=== PATIENT | female | born 1965 | race Caucasian/White ===

== ENCOUNTER → 2016-09-26 | Outpatient (CLI) | payer BC ==
--- NOTE | 2016-10-03 17:46 | KCIC ---
Bilateral digital screening mammograms: Reason for examination: Routine screening. No previous examinations available for comparison. The skin and nipples show no abnormalities. No abnormal axillary lymph nodes are seen. The breast parenchyma is extremely dense. (Breast density: Category D.) There is a small nodular density anterior laterally in the left breast on cc view probably at the 2:00 position measuring 6 mm in size. Recommend further evaluation with ultrasound. There are no other dominant masses, suspicious calcifications or architectural distortion. Impression: Small 6 mm nodule in the left breast laterally probably at the 2:00 B position. Recommend further evaluation with ultrasound. Your patient's mammogram demonstrates that she has dense breast tissue (breast density category C or D), which could hide abnormalities, and if she has other risk factors for breast cancer that have been identified, she might benefit from supplemental screening tests that may be suggested by you as her ordering physician. Dense breast tissue, in and of itself, is a relatively common condition. Therefore, this information is not provided to cause undue concern, but rather to raise your awareness and to promote discussion with your patient regarding the presence of other risk factors, in addition to dense breast tissue. Your patient's mammography results will be sent to her. BI-RAD Category 0: Incomplete. Ultrasound follow-up is recommended. "Our facility is accredited by the [employer] Mammography [employer]." This patient's information has been entered into a reminder system for the patient to be notified with the results of her examination and a target date for the next mammogram. Electronically signed by: Hollie Perez MD (10/03/2016 5:43 PM) [facility]
== END | disposition home or self-care (01) ==
LOC: KCIC MAMMO 15:02
PROVIDERS: ATTEND Nurse Practitioner Family
DX: Z12.31 Encounter for screening mammogram for malignant neoplasm of breast (principal)
CPT/HCPCS: G0202; 77067

== ENCOUNTER → 2016-10-06 | Outpatient (CLI) | payer BC ==
--- NOTE | 2016-10-11 13:37 | KCIC ---
Left breast ultrasound: Reason for examination: Nodular density on screening mammogram. Comparison is made to mammographic exam dated 09/26/2016. Ultrasound examination was performed in the medial left breast. At the 2:30 position 9 cm from the nipple, there is a small nodule consistent with intramammary lymph node. In the 4:00 position 4 cm from the nipple, there is a small 2.7 mm hypoechoic lesion probably representing a small fibrocystic lesion. No other cystic or solid lesions are identified. No abnormal appearing lymph nodes are seen in the axilla. IMPRESSION: Probable small lymph node in the 2:30 position. Small fibrocystic type lesion at the 4:00 position which probably corresponds to the area of mammographic concern. No suspicious lesion seen. Recommend reevaluation with mammograms and ultrasound in 6 months. BI-RADS Category 3: Probably Benign. "Our facility is accredited by the [employer] Mammography Program." This patient's information has been entered into a reminder system for the patient to be notified with the results of her examination and a target date for the next mammogram. Electronically signed by: Hollie Perez MD (10/11/2016 1:34 PM) [facility]
== END | disposition home or self-care (01) ==
LOC: KCIC US 12:53
PROVIDERS: ATTEND Nurse Practitioner Family
DX: N63 Unspecified lump in breast (principal)
CPT/HCPCS: 76641

== ENCOUNTER 2016-12-02 10:21 | Emergency (ER) | payer BC ==
[2016-12-02] MEDS ORDERED: IV NORMAL SALINE 1000ML BAG 1,000 ML IV SCH (10:33)
--- NOTE | 2016-12-02 10:41 | PHYS DOC ---
Past Medical History Past Surgical History: Colectomy (partial colectomy) Smoking: Cigarettes, Greater than 1 pack/day Alcohol Use: Heavy Drug Use: None Adult General Chief Complaint Chief Complaint: ABDOMINAL PAIN HPI HPI Impression is a pleasant 50-year-old female with a history of prior partial colectomy for colon polyps, prior , prior appendectomy, on Depo- Provera for control presents with left lower quadrant abdominal pain. The pain began yesterday at about 6 PM described as sharp and stabbing and intermittent is gotten progressively worse and localized in the left lower quadrant. She denies any fevers or chills, denies any diarrhea or constipation but has had some nausea. She denies any shortness of breath, denies any direct trauma denies any UTI symptoms, denies any sick contacts. Or prior history of the same. Patient says she's had a little tolerance for pain and her pain level is 7 of 10 at this time. Patient denies any drug abuse, she does smoke she does drink daily 6 beers a day but never has had any issues with DTs, auditory or visual hallucinations or other withdrawal symptoms. Patient also claims that never had any issues with her liver pain does not radiate to the back, was not sudden onset is not ripping or tearing. Patient denies any weakness in her lower legs or hematuria, vaginal bleeding or discharge. Review of Systems Review of Systems Constitutional: Denies fever or chills [] Eyes: Denies change in visual acuity, redness, or eye pain [] HENT: Denies nasal congestion or sore throat [] Respiratory: Denies cough or shortness of breath [] Cardiovascular: No additional information not addressed in HPI [] GI: Patient's main complaint is abdominal pain and left lower quadrant with mild nausea no vomiting of bloody stools or diarrhea no constipation. : Denies dysuria or hematuria [] Musculoskeletal: Denies back pain or joint pain [] Integument: Denies rash or skin lesions [] Neurologic: Denies headache, focal weakness or sensory changes [] Endocrine: Denies polyuria or polydipsia [] Current Medications Current Medications Current Medications Medications (Trade) Dose Ordered Sig/Claudia Start Time Stop Time Status Last Admin Dose Admin Hydromorphone HCl (Dilaudid) 1 mg PRN Q15MIN PRN 12/02/16 10:45 12/03/16 10:44 12/02/16 11:30 1 MG Ondansetron HCl (Zofran) 4 mg 1X ONCE 12/02/16 10:45 12/02/16 11:22 DC 12/02/16 11:31 4 MG Sodium Chloride (Normal Saline Flush) 10 ml QSHIFT PRN 12/02/16 10:45 Allergies Allergies Allergies Coded Allergies Type Severity Reaction Last Updated Verified No Known Drug Allergies 12/02/16 No Physical Exam Physical Exam Constitutional: Well developed, well nourished, patient is uncomfortable nondiaphoretic nontoxic in appearance HENT: Normocephalic, atraumatic, bilateral external ears normal, oropharynx moist, no oral exudates, nose normal. [] Eyes: PERRLA, EOMI, conjunctiva normal, no discharge. [] Neck: Normal range of motion, no tenderness, supple, no stridor. [] Cardiovascular:Heart rate regular rhythm, no murmur [] Lungs & Thorax: Bilateral breath sounds clear to auscultation [] Abdomen: Patient has tenderness to palpation a left lower quadrant with no pulsatile masses no guarding rebound or organomegaly. No Rovsing sign no Yanez' s or McBurney's point tenderness palpation no [place] Rachel sign. Skin: Warm, dry, no erythema, no rash. [] Back: No tenderness, no CVA tenderness. [] Extremities: No tenderness, no cyanosis, no clubbing, ROM intact, no edema. [] Neurologic: Alert and oriented X 3, normal motor function, normal sensory function, no focal deficits noted. [] Psychologic: Patient is mildly anxious not seemingly intoxicated appropriate lucid. Current Patient Data Vital Signs Vital Signs Date Time Temp Pulse Resp B/P (MAP) Pulse Ox O2 Delivery O2 Flow Rate FiO2 12/02/16 11:30 18 12/02/16 10:42 98.9 96 152/87 (108) 98 Room Air 98.9 Lab Values Laboratory Tests Test 12/02/16 10:25 12/02/16 10:29 12/02/16 11:00 Urine Collection Type Void Urine Color Yellow Urine Clarity Clear Urine pH 6.5 Urine Specific [place] <=1.005 Urine Protein Negative mg/dL (NEG-TRACE) Urine Glucose (UA) Negative mg/dL (NEG) Urine Ketones (Stick) Trace mg/dL (NEG) Urine Blood Moderate (NEG) Urine Nitrite Positive (NEG) Urine Bilirubin Negative (NEG) Urine Urobilinogen Dipstick 0.2 mg/dL (0.2 mg/dL) Urine Leukocyte Esterase Moderate (NEG) Urine RBC 3-5 /HPF (0-2) Urine WBC 20-40 /HPF (0-4) Urine Squamous Epithelial Cells Mod /LPF Urine Bacteria Many /HPF (0-FEW) Urine Mucus Slight /LPF POC Urine HCG, Qualitative Hcg negative (Negative) White Blood Count 8.5 x10^3/uL (4.0-11.0) Red Blood Count 4.65 x10^6/uL (3.50-5.40) Hemoglobin 14.8 g/dL (12.0-15.5) Hematocrit 43.1 % (36.0-47.0) Mean Corpuscular Volume 93 fL (79-100) Mean Corpuscular Hemoglobin 32 pg (25-35) Mean Corpuscular Hemoglobin Concent 34 g/dL (31-37) Red Cell Distribution Width 12.9 % (11.5-14.5) Platelet Count 175 x10^3/uL (140-400) Neutrophils (%) (Auto) 83 % (31-73) H Lymphocytes (%) (Auto) 5 % (24-48) L Monocytes (%) (Auto) 12 % (0-9) H Eosinophils (%) (Auto) 0 % (0-3) Basophils (%) (Auto) 0 % (0-3) Neutrophils # (Auto) 7.1 x10^3uL (1.8-7.7) Lymphocytes # (Auto) 0.4 x10^3/uL (1.0-4.8) L Monocytes # (Auto) 1.0 x10^3/uL (0.0-1.1) Eosinophils # (Auto) 0.0 x10^3/uL (0.0-0.7) Basophils # (Auto) 0.0 x10^3/uL (0.0-0.2) Sodium Level 134 mmol/L (136-145) L Potassium Level 3.6 mmol/L (3.5-5.1) Chloride Level 98 mmol/L (98-107) Carbon Dioxide Level 26 mmol/L (21-32) Anion Gap 10 (6-14) Blood Urea Nitrogen 6 mg/dL (7-20) L Creatinine 1.0 mg/dL (0.6-1.0) Estimated GFR (Cockcroft-Gault) 58.5 BUN/Creatinine Ratio 6 (6-20) Glucose Level 110 mg/dL (70-99) H Calcium Level 9.1 mg/dL (8.5-10.1) Total Bilirubin 0.8 mg/dL (0.2-1.0) Aspartate Amino Transferase (AST) 16 U/L (15-37) Alanine Aminotransferase (ALT) 36 U/L (14-59) Alkaline Phosphatase 96 U/L (46-116) Total Protein 7.2 g/dL (6.4-8.2) Albumin 3.4 g/dL (3.4-5.0) Albumin/Globulin Ratio 0.9 (1.0-1.7) L Lipase 96 U/L (73-393) Ethyl Alcohol Level < 10 mg/dL (0-10) Laboratory Tests 12/02/16 11:00 Laboratory Tests 12/02/16 11:00 EKG EKG [] Radiology/Procedures Radiology/Procedures [] IMAGING REPORT Signed PATIENT: SONNY RIOS ACCOUNT: [id number] : 1965 LOCATION: ER AGE: 50 SEX: F EXAM STATUS: REG ER ORD. PHYSICIAN: ZION WOOD MD REASON: left lq pain PROCEDURE: CT ABDOMEN PELVIS WO CONTRAST One or more of the following individualized dose reduction techniques were utilized for this examination: 1. Automated exposure control 2. Adjustment of the mA and/or kV according to patient size 3. Use of iterative reconstruction technique CT abdomen and pelvis without contrast. History: Left lower quadrant pain and groin pain CT scan of the abdomen and pelvis was done without contrast. There is mild atelectasis in the lung bases. There are 2 low-density lesions in the liver which are nonspecific ultrasound could be of benefit for further evaluation. There is no calcified gallstone. Liver is mildly decreased in density compared to the spleen possible fatty infiltration. Adrenal glands and pancreas are unremarkable. There is no mass or hydronephrosis and the kidneys. A renal calculus is not identified. There is no free air or ascites or bowel obstruction. Patient's had a partial right hemicolectomy. Uterus and ovaries are normal. There is mild diverticulosis of the colon, I do not see an acute diverticulitis. There is slight perinephric stranding about the left kidney a ureteral calculus is not identified at this time but the patient could've passed a calculus. Impression: 1. Slight perinephric stranding about the left kidney which can be related to previous obstruction or infection. 2. No ureteral or renal calculus noted at this time. 3. Previous right colon surgery. 4. There is not evidence of diverticulitis. 5. Ultrasound was be of benefit to evaluate the liver lesions. DICTATED and SIGNED BY: BREANNA THOMPSON MD DATE: 12/02/161128 CC: ZION WOOD MD; DELMY BARROW APRN ~ Course & Med Decision Making Course & Med Decision Making Pertinent Labs and Imaging studies reviewed. (See chart for details) she presents with left lower quadrant abdominal pain with a history of right partial colectomy secondary to polyps. Differential diagnosis of left lower quadrant abdominal pain includes but not limited to pyonephritis, UTI, kidney stone, diverticulitis, diverticulosis, small bowel section, nonaccidental trauma , abdominal contusion, ectopic , ovarian torsion, ovarian pathology, PID I reviewed patient's laboratory work patient demonstrates a normal CBC with no left shift, normal CMP with exception of a mildly elevated glucose of 110. Patient's urinalysis does show signs of leukocytes, nitrates and bacteria there is significant contamination as well but given patient's pain without vaginal bleeding or discharge will likely empirically treat as a UTI. Patient also has some inflammation of the left kidney which may represent early pyelonephritis first pass of kidney stone. I think given duration of patient's symptoms I will offer pain medication as appropriate at approximate cause follow-up with urology. Patient tells me that their symptoms given during CC are improved. We reviewed labs and radiology reports with patient and any family at bedside. Time is now 11:53 AM. [] Dragon Disclaimer Dragon Disclaimer This electronic medical record was generated, in whole or in part, using a voice recognition dictation system. Departure Departure Impression: Primary Impression: Abdominal pain Additional Impression: Urinary tract infection Disposition: 01 HOME, SELF-CARE Condition: IMPROVED Referrals: DELMY BARROW APRN (PCP) Patient Instructions: Abdominal Pain (Nonspecific), Urinary Tract Infection Additional Instructions: My discharge plan Follow up: In addition patient is asked to followup with their primary doctor, within a week for followup examination and to address patient's ongoing medical conditions. . Patient is advised that in the Emergency Department primary complaints are addressed and only in light of known signs and symptoms. Patient should return immediately to the emergency department if new signs and symptoms develop or patient's condition worsens in any way. At time of discharge patient was in stable condition and had verbalized understanding of the discharge instructions. Although there is no obvious evidence of appendicitis or intra-abdominal catastrophe at this time requiring surgical intervention or immediate medical management you could still develop these issues in the future. I would ask that you return immediately for any increasing symptoms question concerns. Scripts Phenazopyridine Hcl (PYRIDIUM) 200 Mg Tablet 200 MG PO TID for 3 Days, #9 TAB Prov: ZION WOOD MD 12/02/16 Hydrocodone Bit/Acetaminophen (HYDROCODONE-APAP 5-325 ) 1 Each Tablet 1-2 TAB PO PRN Q6HRS Y for PAIN for 5 Days, #10 TAB 0 Refills Prov: ZION WOOD MD 12/02/16 Sulfamethoxazole/Trimethoprim (BACTRIM DS TABLET) 1 Each Tablet 1 TAB PO BID, #20 TAB Prov: ZION WOOD MD 12/02/16 Problem Qualifiers ZION WOOD MD Dec 02, 2016 10:41
[2016-12-02 10:43] LABS: BILIRUBIN,URINE NEGATIVE (NEG); GLUCOSE,URINE NEGATIVE (NEG); NITRITE,URINE POSITIVE (NEG); PH,URINE 6.5; PROTEIN,URINE NEGATIVE (NEG-TRACE); UROBILINOGEN,URINE 0.2 mg/dL (0.2 mg/dL)
[2016-12-02] MEDS ORDERED: ONDANSETRON PF 4 MG/2 ML VIAL. IV ONE (10:45)
[2016-12-02] MEDS ORDERED: HYDROmorphone 2 MG/ML VIAL IV/SQ PRN (10:45)
[2016-12-02] MEDS ORDERED: 0.9 % SODIUM CHLORIDE 10 ML DISP.SYRIN. IV PRN (10:45)
[2016-12-02 10:52] LABS: BACTERIA,URINE MANY /HPF (0-FEW); SQUAMOUS EPITHELIAL CELL,UR MOD /LPF; WBC,URINE 20-40 /HPF (0-4)
[2016-12-02 11:07] LABS: BASO % 0 % (0-3); EOS % 0 % (0-3); HEMATOCRIT 43.1 % (36.0-47.0); HEMOGLOBIN 14.8 g/dL (12.0-15.5); LYMPH # 0.4 x10^3/uL (1.0-4.8); LYMPH % 5 % (24-48); MEAN CORPUSCULAR HEMOGLOBIN 32 pg (25-35); MEAN CORPUSCULAR HGB CONC 34 g/dL (31-37); MEAN CORPUSCULAR VOLUME 93 fL (79-100); MONO % 12 % (0-9); NEUT % 83 % (31-73); PLATELET COUNT 175 x10^3/uL (140-400); RED BLOOD COUNT 4.65 x10^6/uL (3.50-5.40); RED CELL DISTRIBUTION WIDTH 12.9 % (11.5-14.5); WHITE BLOOD COUNT 8.5 x10^3/uL (4.0-11.0)
[2016-12-02 11:19] LABS: CALCIUM 9.1 mg/dL (8.5-10.1); GFR 58.5; POTASSIUM 3.6 mmol/L (3.5-5.1)
[2016-12-02 11:25] LABS: ALBUMIN 3.4 g/dL (3.4-5.0); ALBUMIN/GLOBULIN RATIO 0.9 (1.0-1.7); TOTAL BILIRUBIN 0.8 mg/dL (0.2-1.0); TOTAL PROTEIN 7.2 g/dL (6.4-8.2)
--- NOTE | 2016-12-02 11:38 | RAD ---
One or more of the following individualized dose reduction techniques were utilized for this examination: 1. Automated exposure control 2. Adjustment of the mA and/or kV according to patient size 3. Use of iterative reconstruction technique CT abdomen and pelvis without contrast. History: Left lower quadrant pain and groin pain CT scan of the abdomen and pelvis was done without contrast. There is mild atelectasis in the lung bases. There are 2 low-density lesions in the liver which are nonspecific ultrasound could be of benefit for further evaluation. There is no calcified gallstone. Liver is mildly decreased in density compared to the spleen possible fatty infiltration. Adrenal glands and pancreas are unremarkable. There is no mass or hydronephrosis and the kidneys. A renal calculus is not identified. There is no free air or ascites or bowel obstruction. Patient's had a partial right hemicolectomy. Uterus and ovaries are normal. There is mild diverticulosis of the colon, I do not see an acute diverticulitis. There is slight perinephric stranding about the left kidney a ureteral calculus is not identified at this time but the patient could've passed a calculus. Impression: 1. Slight perinephric stranding about the left kidney which can be related to previous obstruction or infection. 2. No ureteral or renal calculus noted at this time. 3. Previous right colon surgery. 4. There is not evidence of diverticulitis. 5. Ultrasound was be of benefit to evaluate the liver lesions.
[2016-12-02 12:00] VITALS: BP 142/71
[2016-12-02] MEDS ORDERED: PHEN-318 PO (12:04)
[2016-12-02] MEDS ORDERED: HYDR-2758 PO (12:04)
[2016-12-02] MEDS ORDERED: SULF1TAB24 PO (12:04)
--- NOTE | 2016-12-02 12:53 | EKG ---
[facility] [address] [place] [address] Test Date: 2016-12-02 Test Time: 10:57:37 Pat Name: SONNY RIOS Department: Room: Gender: F Roving Marker: : 1965 Requested By: ZION WOOD Order Number: [id number] Reading MD: Measurements Intervals Rousseau Rate: 87 P: 43 AK: 166 QRS: 68 QRSD: 88 T: 23 QT: 348 QTc: 419 Interpretive Statements SINUS RHYTHM INCOMPLETE RIGHT BUNDLE BRANCH BLOCK QRS(T) CONTOUR ABNORMALITY CONSIDER ANTEROSEPTAL MYOCARDIAL DAMAGE RI6.01 Unconfirmed report No previous ECG available for comparison
--- NOTE | 2016-12-05 14:51 | VNOTE ---
CALL BACK NOTE CALL BACK Microbiology 12/02/16 Urine Culture - Final, Complete 12/02/16 Urine Culture Result 1 (SHALINI) - Final, Complete 12/02/16 Antimicrobic Susceptibility - Final, Complete Call placed to patient's contact information provided by patient at date of visit. Left a voicemail requesting patient to place called to [facility]/emergency room to discuss urine culture and change in antibiotic. Provided contact information for call back number to the emergency room. CUORTNEY NDIAYE Dec 05, 2016 14:51
== END 2016-12-02 12:17 | disposition home or self-care (01) ==
LOC: ER 10:21
DX: N39.0 Urinary tract infection, site not specified (principal); F17.210 Nicotine dependence, cigarettes, uncomplicated; Z90.49 Acquired absence of other specified parts of digestive tract; Z86.010 Personal history of colon polyps
CPT/HCPCS: 36415; 74176; 80053; 81001; 81025; 83690; 85025; 87086; 87186; 93005; 96361; 96374; 96375; 99285; G0480; J1170; J2405; J7030

== ENCOUNTER → 2017-02-09 | Outpatient (CLI) | payer OTHER ==
[~2017-02-09] MED LIST: HYDR-2758 PO; PHEN-318 PO; SULF1TAB24 PO
--- NOTE | 2017-02-09 12:49 | KCIC ---
Right upper quadrant abdominal ultrasound, 02/09/2017: HISTORY: Abnormal CT study The gallbladder is within normal limits in size. There is no sonographic evidence of cholelithiasis. The gallbladder wall is not thickened. The common hepatic duct at the denise hepatis level measures 8-9 mm. This is mildly enlarged. More distally the common bile duct does not appear to be significantly enlarged. No common duct calculus is seen. No intrahepatic biliary ductal dilatation is evident. Two small hyperechoic lesions are noted in the right lobe of the liver. Both of these measure approximately 2 cm in diameter. These are most likely hemangiomas, however, that cannot be stated with certainty. These appear to correspond location to the low-density lesions identified on the outside CT abdomen from 12/02/2016. The visualized portions of the pancreas and right kidney are unremarkable. IMPRESSION: 1. Two small hyperechoic hepatic nodules are probably hemangiomas. Sonographic follow-up is suggested to confirm stability. 2. Mild enlargement of the common hepatic duct without evidence of intrahepatic biliary ductal dilatation. 3. Normal gallbladder Electronically signed by: Gurdeep Mckeon MD (02/09/2017 12:45 PM) [facility]
== END | disposition home or self-care (01) ==
LOC: KCIC US 08:04
PROVIDERS: ATTEND Nurse Practitioner Family
DX: K76.9 Liver disease, unspecified (principal); R16.0 Hepatomegaly, not elsewhere classified
CPT/HCPCS: 76705

== ENCOUNTER → 2018-04-04 | Outpatient (CLI) | payer OTHER ==
[~2018-04-04] MED LIST changes: -HYDR-2758 PO; +HYDR-2761 PO
--- NOTE | 2018-04-04 16:38 | KCIC ---
Bilateral diagnostic digital mammograms: Reason for examination: Follow-up nodule. Comparison is made to previous study dated 09/26/2016. Interpretation was made with the benefit of CAD. The skin and nipples show no abnormalities. No abnormal axillary lymph nodes are seen. The breast parenchyma is extremely dense. (Breast density: Category D.) There continues to be a small nodular density anterior laterally in the left breast on cc view. There is also however some nodularity seen developing inferiorly in the right breast seen best on oblique view. This be further evaluated with ultrasound. There are no suspicious calcifications or architectural distortion. IMPRESSION: Nodule persists anterior laterally in the left breast. New nodularity in the inferior right breast. Ultrasound to follow. Your patient's mammogram demonstrates that she has dense breast tissue (breast density category C or D), which could hide abnormalities, and if she has other risk factors for breast cancer that have been identified, she might benefit from supplemental screening tests that may be suggested by you as her ordering physician. Dense breast tissue, in and of itself, is a relatively common condition. Therefore, this information is not provided to cause undue concern, but rather to raise your awareness and to promote discussion with your patient regarding the presence of other risk factors, in addition to dense breast tissue. Your patient's mammography results will be sent to her. BI-RAD Category 0: Incomplete. Needs additional imaging evaluation. Bilateral breast ultrasound: Comparison is made to previous study dated 10/06/2016. Bilateral breast ultrasound was performed with attention to the areas of previous mammographic and sonographic concern of the left breast and left axilla and to the inferior right breast and right axilla. The right breast shows a small 8.7 x 6.8 mm cyst at the 4:00 position 5 cm from the nipple. There is a small 3.8 mm fibrocystic type lesion at the 7:30 position 4 cm from the nipple and a 5 mm fibrocystic type lesion at the 6:30 position 3 cm from the nipple. No abnormal appearing lymph nodes are seen in the axilla. The left breast shows a small 2.6 mm cyst at the 4:00 position 4 cm from the nipple and a 7.2 mm intramammary lymph node at the 2:30 position 9 cm from the nipple. No abnormal appearing lymph nodes are seen in the left axilla. IMPRESSION: Benign-appearing cystic and fibrocystic type lesions bilaterally. Small intramammary lymph node in the left breast. No grossly suspicious abnormality seen. Recommend 6 month sonographic follow-up. BI-RADS Category 3: Probably Benign. "Our facility is accredited by the [employer] Mammography Program." This patient's information has been entered into a reminder system for the patient to be notified with the results of her examination and a target date for the next mammogram. Electronically signed by: Hollie Perez MD (04/04/2018 4:34 PM) [facility]
== END | disposition home or self-care (01) ==
LOC: KCIC MAMMO 08:07
PROVIDERS: ATTEND Nurse Practitioner Family
DX: N60.01 Solitary cyst of right breast (principal); N60.02 Solitary cyst of left breast
CPT/HCPCS: 76641; 77066

== ENCOUNTER → 2018-10-30 | Outpatient (CLI) | payer OTHER ==
--- NOTE | 2018-10-30 08:48 | KCIC ---
EXAM: Bilateral breast sonogram. HISTORY: 52-year-old female presents for 6 month follow-up evaluation of benign-appearing lesions within both breasts demonstrated on a sonogram dated 04/04/2018. TECHNIQUE: Sonographic imaging of both breasts including all 4 quadrants and the retroareolar lesion was performed. COMPARISON: 04/04/2018. FINDINGS: Sonographic imaging of the right breast demonstrates a solid appearing circumscribed hypoechoic nodule at the 4:00 position 5 cm from the nipple measuring 6.8 x 3.2 x 6.2 mm, previously measuring 8.7 x 6.8 x 3.5 mm. The sonographic appearance and interval decrease in size favor a benign etiology such as a fibroadenoma. There is a heterogeneous suspected benign fibrocystic lesion at the 7:30 position 4 cm from the nipple measuring 4.6 x 4.0 x 1.5 mm, previously measuring 3.8 x 3.5 x 1.5 mm. The minimal interval change favors benignity. There is a suspected benign fibrocystic lesion at the 6:30 position 3 cm from the nipple measuring 2.3 x 2.2 x 2.1 mm, previously measuring 5.0 x 2.2 x 2.0 mm. The interval decrease favors benignity. Sonographic imaging of the left breast demonstrates a stable suspected lymph node with thickened cortex at the 2:30 position 9 cm from the nipple measuring 7 x 6.9 x 3.8 mm, previously measuring 7.5 x 7.2 x 3.3 mm. There has been slight interval decrease in a suspected complicated cystic lesion at the 4:00 position 4 cm from the nipple measuring 2.0 x 2.0 x 1.9 mm, previously measuring 2.6 x 2.6 x 2.0 mm. No new lesion is seen within either breast. IMPRESSION: 1. Stable or decreased size of benign-appearing subcentimeter lesions within both breasts, one of which may be a fibroadenoma and the others of which are likely fibrocystic or complex cystic. These are described in detail above. 2. Slight interval increase in a benign-appearing lesion at the 7:30 position of the right breast measuring 4.6 mm, likely fibrocystic in etiology. 3. BI-RADS Category 3: Probably benign finding(s). Short term follow up with a bilateral breast sonogram in 6 months is recommended to confirm longer-term stability. This follow up interval corresponds with the previously established bilateral mammography interval. Electronically signed by: Nithya Elaine MD (10/30/2018 8:45 AM) [id number]
== END | disposition home or self-care (01) ==
LOC: KCIC US 07:57
PROVIDERS: ATTEND Nurse Practitioner Family
DX: R92.8 Other abnormal and inconclusive findings on diagnostic imaging of breast (principal)
CPT/HCPCS: 76641

== ENCOUNTER → 2019-01-16 | Outpatient (CLI) | payer OTHER ==
--- NOTE | 2019-01-17 09:52 | KCIC ---
Examination: ELBOW RIGHT 3V History: Pain for over 6 months olecranon region Comparison/Correlation: None Findings: Total 3 images of the right elbow were obtained. Minimal spurring of the coronoid process is present. No joint effusion. No fracture or bony structure. Olecranon process is unremarkable. Bony mineralization is adequate. Soft tissues are grossly unremarkable. Accessory ossicle about the lateral epicondyle is noted. Impression: No suspicious process. No significant degenerative change. Electronically signed by: Amarjit Stevens MD (01/17/2019 9:50 AM) [facility]
== END | disposition home or self-care (01) ==
LOC: KCIC 13:03
PROVIDERS: ATTEND Nurse Practitioner Family
DX: M77.8 Other enthesopathies, not elsewhere classified (principal)
CPT/HCPCS: 73080

== ENCOUNTER → 2020-02-11 | Outpatient (CLI) | payer OTHER ==
--- NOTE | 2020-02-11 13:30 | RAD ---
EXAMINATION: MAMMO MARQUITA DIAG BILAT, BREAST BILATERAL History: Reason: ABNORMAL MAMMOGRAM / Spl. Instructions: / History: Comparison: 04/04/2018, 09/26/2016, left breast ultrasound 10/06/2016, bilateral breast ultrasound 04/04/2018, 10/30/2018 bilateral breast ultrasound exam. Technique: Bilateral digital diagnostic mammogram views were obtained. CAD was utilized. 3-D tomosynthesis images were acquired. Findings: Breast Tissue Density C : The breasts are heterogeneously dense, which may obscure small masses. There are no dominant masses, suspicious microcalcifications, or architectural distortion. No new masses. Bilateral limited breast ultrasound exam was performed. Right breast 4:00 mass 5 cm from nipple measuring 0.8 cm x 0.5 cm x 0.36 cm tall is present and well circumscribed. It is hypoechoic. Right breast cyst measuring 0.22 cm x 0.15 cm x 0.5 cm is decreased compared to previous exam. Right axilla is unremarkable. Left breast 2:30 lymph node 9 cm from the nipple is stable. Previously described left breast 4:00 cyst has resolved. No suspicious finding at the left breast 4:00 region 4 cm from the nipple. IMPRESSION: Right breast 4:00 mass is similar in size compared to previous exam. Interval follow-up in 6 months to assess continued stability for a 2 year time span is recommended. BI-RADS category 3: Probably benign. The images were reviewed with computer aided detection. Patient information is entered into the reminder system with a target due date for the next screening mammogram. Mammography is the most sensitive method for finding small breast cancers, but it does not detect them all and is not a substitute for careful clinical examination. A negative mammogram does not negate a clinically suspicious finding and should not result in delay in biopsying a clinically suspicious abnormality. "Our facility is accredited by the [employer] Mammography Program." Electronically signed by: Amarjit Stevens MD (02/11/2020 1:27 PM) [place] [id number]
== END ==
LOC: MAMMO 08:23
PROVIDERS: ATTEND Nurse Practitioner Family
DX: N63.13 Unspecified lump in the right breast, lower outer quadrant (principal); N60.01 Solitary cyst of right breast; N60.02 Solitary cyst of left breast
CPT/HCPCS: 76641; 77066; G0279; 77062

== ENCOUNTER → 2020-09-23 | Outpatient (CLI) | payer OTHER ==
--- NOTE | 2020-09-23 18:18 | KCIC ---
DIAGNOSTIC 2-D AND 3-D DIGITAL RIGHT MAMMOGRAM TARGETED/LIMITED RIGHT BREAST ULTRASOUND History: Follow-up of probably benign mass in the 4:00 position of the right breast. Comparison: Mammograms from 02/11/2020, 04/04/2018, and right breast ultrasound from the 02/11/2020. Findings: Mammogram: Breast Tissue Density C : The breast tissue is heterogeneously dense. Scattered fibroglan dular elements may obscure underlying pathology. There is a unchanged 7 mm oval circumscribed mass in the 4:00 position of the right breast, about 5 c m from the nipple.There are no new suspicious masses, malignant appearing calcifications, or areas of architectural distortion. Findings ultrasound The small mass in the 4:00 position of the right breast, 5 cm from the nipple, is again seen and lynne ures 8 mm x 5 mm x 4 mm. There is a tiny complicated cyst in the 6:30 position right breast, 3 cm fro m the nipple. These do not appear changed since the February 2020 ultrasound. No axillary adenopathy is seen. 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 There is a stable tiny complicated cyst in the 6:30 position of the rig ht breast. ASSESSMENT: BI-RADS 2. Benign findings. Recommendations: Routine annual mammograms. The patient was given results at the time of the exams. Your mammogram demonstrates that you have dense breast tissue, which could hide abnormalities, and if you have other risk factors for breast cancer that have been identified, you might benefit from supp lemental screening tests that may be suggested by your ordering physician. Dense breast tissue, in a nd of itself, is a relatively common condition. This information is not provided to cause undue conc andrew, but rather to raise your awareness and to promote discussion with your physician regarding the p resence of other risk factors, in addition to dense breast tissue. A report of your mammography resul ts will be sent to you and your physician. You should contact your physician if you have any questio ns or concerns regarding this report. Patient information is entered into the reminder system using with a target due date for the next sc reening mammogram. The patient will receive a reminder. Electronically signed by: Merle Rodriguez MD (09/23/2020 6:16 PM) [email or web address]
== END ==
LOC: KCIC MAMMO 09:45
PROVIDERS: ATTEND Nurse Practitioner Family
DX: Z09 Encounter for follow-up examination after completed treatment for conditions other than malignant neoplasm (principal); R92.2 Inconclusive mammogram; N60.01 Solitary cyst of right breast
CPT/HCPCS: 76641; 77065; G0279; 77061